=== PATIENT | female | born 1985 | race African-American/Black ===

== ENCOUNTER 2017-09-22 21:02 | Emergency (ER) | payer OTHER ==
[~2017-09-22] VITALS: Ht 170.2 cm; Wt 155.0 kg
[2017-09-23] MEDS ORDERED: ONDANSETRON 4MG ODT PO ONE (00:45)
[2017-09-23] MEDS ORDERED: ACETAMINOPHEN 325MG TABLET PO ONE (00:45)
[2017-09-23 01:30] VITALS: BP 114/76
== END 2017-09-23 01:38 | disposition home or self-care (01) ==
LOC: ER 21:12
DX: F12.10 Cannabis abuse, uncomplicated (principal); F41.9 Anxiety disorder, unspecified
CPT/HCPCS: 99283; Q0162